=== PATIENT | female | born 1995 | race Caucasian/White ===

== ENCOUNTER 2016-08-17 14:09 | Emergency (ER) | payer OTHER ==
[2016-08-17] MEDS ORDERED: TYLENOL 325 MG PO STA (14:43)
--- NOTE | 2016-08-17 14:45 | ERPHSYRPT ---
- History of Present Illness Time Seen by Provider: 08/17/16 14:35 Source: patient Exam Limitations: clinical condition Patient Subjective Stated Complaint: pt walked in, skin w/d, resp easy, no injury to back, Triage Nursing Assessment: see above for triage Physician History: PATIENT COMPLAINS OF FREQUENCY, URGENCY AND SLIGHT DYSURIA FOR 2-3 DAYS. DENIES FEVER, CHILLS, ABDOMINAL PAIN OR FLANK PAIN. Timing/Duration: day(s) Activites at Onset: none Quality: burning Onset Location: suprapubic Severity of Pain-Max: none Severity of Pain-Current: none Prior abdominal problems: none Sexual intercourse history: non-contributory Modifying Factors: Improves With: nothing Associated Symptoms: urinary frequency Allergies/Adverse Reactions: No Known Drug Allergies Allergy (Verified 08/17/16 14:26) Hx Tetanus, Diphtheria Vaccination/Date Given: No Hx Influenza Vaccination/Date Given: No Hx Pneumococcal Vaccination/Date Given: No - Review of Systems Constitutional: No Fever, No Chills Eyes: No Symptoms Ears, Nose, & Throat: No Symptoms Respiratory: No Cough, No Dyspnea Cardiac: No Chest Pain, No Edema, No Syncope Abdominal/Gastrointestinal: No Abdominal Pain, No Nausea, No Vomiting, No Diarrhea Genitourinary Symptoms: Dysuria, Frequency, Hesitancy Musculoskeletal: No Back Pain, No Neck Pain Skin: No Rash Neurological: No Dizziness, No Focal Weakness, No Sensory Changes Psychological: No Symptoms Endocrine: No Symptoms All Other Systems: Reviewed and Negative - Past Medical History Pertinent Past Medical History: No Neurological History: No Pertinent History ENT History: No Pertinent History Cardiac History: No Pertinent History Respiratory History: No Pertinent History Endocrine Medical History: No Pertinent History Musculoskeletal History: No Pertinent History GI Medical History: No Pertinent History History: No Pertinent History Psycho-Social History: No Pertinent History Female Reproductive Disorders: No Pertinent History Other Medical History: Occasional ear infection and UTI.pt had normal vaginal delivery 07/06/16 - Past Surgical History Past Surgical History: No Neuro Surgical History: No Pertinent History Cardiac: No Pertinent History Respiratory: No Pertinent History Gastrointestinal: No Pertinent History Genitourinary: No Pertinent History Musculoskeletal: No Pertinent History Female Surgical History: No Pertinent History - Social History Smoking Status: Current some day smoker Exposure to second hand smoke: Yes Drug Use: marijuana Patient Lives Alone: No - Female History Hx Last Menstrual Period: oct 2015 Hx Now: Yes - Nursing Vital Signs Nursing Vital Signs: Initial Vital Signs Temperature 97.8 F Temperature Source Oral Pulse Rate 79 Respiratory Rate 16 Blood Pressure [Right Arm] 130/78 Pain Intensity 7 - Physical Exam General Appearance: no apparent distress, alert Eye Exam: PERRL/EOMI, eyes nml inspection Ears, Nose, Throat Exam: normal ENT inspection, TMs normal, pharynx normal, moist mucous membranes Neck Exam: normal inspection, non-tender, supple, full range of motion Respiratory Exam: normal breath sounds, lungs clear, No respiratory distress Cardiovascular Exam: regular rate/rhythm, normal heart sounds, normal peripheral pulses Gastrointestinal/Abdomen Exam: soft, normal bowel sounds, No tenderness, No mass Back Exam: normal inspection, normal range of motion, No CVA tenderness, No vertebral tenderness Extremity Exam: normal inspection, normal range of motion, pelvis stable Neurologic Exam: alert, oriented x 3, cooperative, solar/renewable energy sales II-XII nml as tested, normal mood/affect, sensation nml, No motor deficits Skin Exam: normal color, warm, dry Lymphatic Exam: No adenopathy SpO2 Interpretation: normal SpO2: 93 Oxygen Delivery: Room Air Ordered Tests: Active Orders 24 hr Category Date Time Status IV Insertion STAT Care 08/17/16 15:29 Active CULTURE,URINE Stat Lab 08/17/16 15:00 Received HCG,QUALITATIVE URINE Stat Lab 08/17/16 15:00 Completed UA W/ MICROSCOPIC Stat Lab 08/17/16 15:00 Completed Medication Summary Discontinued Medications Generic Name Dose Route Start Last Admin Trade Name Janny PRN Reason Stop Dose Admin Acetaminophen 650 mg 08/17/16 14:43 08/17/16 15:15 Tylenol 325 Mg PO 08/17/16 14:44 650 mg STAT STA Administration Acetaminophen Confirm 08/17/16 15:15 Tylenol 325 Mg Administered 08/17/16 15:16 Dose 650 mg .ROUTE .STK-MED ONE Ceftriaxone Sodium/Dextrose 1 g in 50 mls @ 100 mls/hr 08/17/16 15:30 15:53 Rocephin 1 Gm-D5w 50 Ml Bag IV 08/17/16 15:59 100 mls/hr STAT STA Administration Sodium Chloride 1,000 mls @ 999 mls/hr 08/17/16 15:29 08/17/16 15:53 Sodium Chloride 0.9% 1000 Ml IV 08/17/16 16:29 999 mls/hr .Q1H1M STA Administration Sodium Chloride Confirm 08/17/16 15:51 Sodium Chloride 0.9% 1000 Ml Administered 08/17/16 15:52 Dose 1,000 mls @ ud .ROUTE .STK-MED ONE Ceftriaxone Sodium/Dextrose Confirm 08/17/16 15:51 Rocephin 1 Gm-D5w 50 Ml Bag Administered 08/17/16 15:52 Dose 1 g in 50 mls @ ud IV .STK-MED ONE Lab/Rad Data: Laboratory Results 08/17/16 08/17/16 Range/Units 15:00 15:00 Ur Collection Type VOID Urine Color YELLOW (YELLOW) Urine Appearance CLOUDY (CLEAR) Urine pH 6.0 (5-6) Ur Specific [place] 1.010 (1.005-1.025) Urine Protein 2+ (Negative) Urine Ketones NEGATIVE (NEGATIVE) Urine Blood 250 (0-5) Nadir/ul Urine Nitrite POSITIVE (NEGATIVE) Urine Bilirubin NEGATIVE (NEGATIVE) Urine Urobilinogen NORMAL (0-1) mg/dL Ur Leukocyte Esterase 2+ (NEGATIVE) Urine Microscopic RBC 0-2 (0-2) /HPF Urine Microscopic WBC >100 (0-5) /HPF Ur Epithelial Cells RARE (FEW) /HPF Urine Bacteria MANY (NEGATIVE) /HPF Urine Glucose NEGATIVE (NEGATIVE) mg/dL Urine HCG, Qual NEGATIVE (Negative) Specimen Received 08/17/16 1510 - Progress Progress Note: 08/17/16 16:36 PATIENT GIVEN BOLUS NORMAL SALINE OVER 1 HOUR, ROCEPHIN 1GM IVPB, TYLENOL 650MG ORAL Counseled pt/family regarding: lab results, diagnosis, need for follow-up - Departure Time of Disposition: 17:05 Departure Disposition: Home Clinical Impression: URINARY TRACT INFECTION Condition: Stable Critical Care Time: No Referrals: NENITA DELATORRE [Primary Care Provider] - Additional Instructions: ANTIBIOTIC BACTRIM DS TWICE DAILY FOR 10 DAYS. PYRIDIUM 100MG AFTER MEALS FOR 2 DAYS. DRINK PLENTY OF FLUIDS. TYLENOL OR MOTRIN NEEDED FOR PAIN OR FEVER. CONSULT YOUR PRIMARY HEALTH CARE PROVIDER FOR FOLLOWUP. Prescriptions: Phenazopyridine HCl [Pyridium] 100 mg PO BETWEEN UNITS #6 tablet Smz/Tmp Ds Tablet [Bactrim Ds Tablet] 1 udtab PO BID #20 tablet
[2016-08-17] MEDS ORDERED: TYLENOL 325 MG ONE (15:15)
[2016-08-17 15:17] LABS: ADD URINE CULTURE? YES (NO); Bilirubin NEGATIVE (NEGATIVE); Blood 250 Ery/ul (0-5); COMPLETE URINE MICROSCOPIC? YES; Collection Type VOID; Glucose NEGATIVE (NEGATIVE); Leukocyte Esterase 2+ (NEGATIVE)
[2016-08-17 15:23] LABS: Bacteria MANY /HPF (NEGATIVE); Epithelial Cells RARE /HPF (FEW); WBC >100 /HPF (0-5)
[2016-08-17] MEDS ORDERED: Sodium Chloride 0.9% 1000 ML 1,000 ML IV STA (15:29)
[2016-08-17] MEDS ORDERED: ROCEPHIN 1 Gm-D5w 50 ml Bag** 1 G/50 ML IVPB IV STA (15:30)
[2016-08-17] MEDS ORDERED: ROCEPHIN 1 Gm-D5w 50 ml Bag** 1 G/50 ML IVPB IV ONE (15:51)
[2016-08-17] MEDS ORDERED: Sodium Chloride 0.9% 1000 ML 1,000 ML ONE (15:51)
[2016-08-17] MEDS ORDERED: TORAdol 30 mg Injection IV ONE (16:52)
[2016-08-17] MEDS ORDERED: TORAdol 30 mg Injection ONE (16:55)
[2016-08-17 17:03] VITALS: BP 127/80; PULSE 75; O2SAT 99
== END 2016-08-17 17:12 | disposition home or self-care (01) ==
LOC: ED 14:09
DX: N39.0 Urinary tract infection, site not specified (principal); R30.0 Dysuria; R35.0 Frequency of micturition
CPT/HCPCS: 36000; 81000; 84703; 87077; 87086; 87186; 96360; 96365; 96374; 99284; J0696; J1885; A9270-GY

== ENCOUNTER 2017-01-03 14:40 | Observation (INO) | payer OTHER ==
[2017-01-03] MEDS ORDERED: Zosyn 3.375GM/100 Ml D5W 3.375 GM/100 ML IVPB IV STA (14:58)
[2017-01-03] MEDS ORDERED: TYLENOL 325 MG PO STA (14:58)
[2017-01-03] MEDS ORDERED: TYLENOL 325 MG ONE (15:05)
[2017-01-03] MEDS ORDERED: Zosyn 3.375GM/100 Ml D5W 3.375 GM/100 ML IVPB IV ONE (15:05)
--- NOTE | 2017-01-03 15:05 | ERPHSYRPT ---
- History of Present Illness Time Seen by Provider: 01/03/17 15:02 Historian: patient Exam Limitations: no limitations Patient Subjective Stated Complaint: 2 weeks has been haivng buring,and pain with urination, fever last night, nausea Triage Nursing Assessment: pt alert, resp easy, skin w/d pink, urine cloudy, abd soft, pain to lower abd and back ,bs x4 Physician History: mild to mod burning and cloudy urine for one week, bilateral flank ache, no injury, +fever, no emesis, speech fluent, ambulatory Allergies/Adverse Reactions: No Known Drug Allergies Allergy (Verified 01/03/17 14:45) Home Medications: No Reportable Medications [No Reported Medications] 01/03/17 [History] Hx Tetanus, Diphtheria Vaccination/Date Given: Yes Hx Influenza Vaccination/Date Given: Yes Hx Pneumococcal Vaccination/Date Given: No Immunizations Up to Date: Yes - Review of Systems Constitutional: Fever, Fatigue Eyes: No Symptoms Ears, Nose, & Throat: No Symptoms Respiratory: No Symptoms Cardiac: No Symptoms Abdominal/Gastrointestinal: Abdominal Pain, Nausea, No Vomiting Genitourinary Symptoms: Dysuria, Flank Pain Musculoskeletal: No Injury Skin: No Symptoms Neurological: No Dizziness, No Focal Weakness, No Headache, No Lethargy Psychological: No Symptoms - Past Medical History Pertinent Past Medical History: No Neurological History: No Pertinent History ENT History: No Pertinent History Cardiac History: No Pertinent History Respiratory History: No Pertinent History Endocrine Medical History: No Pertinent History Musculoskeletal History: No Pertinent History GI Medical History: No Pertinent History History: No Pertinent History Psycho-Social History: No Pertinent History Female Reproductive Disorders: No Pertinent History Other Medical History: Occasional ear infection and UTI.pt had normal vaginal delivery 07/06/16 - Past Surgical History Past Surgical History: No Neuro Surgical History: No Pertinent History Cardiac: No Pertinent History Respiratory: No Pertinent History Gastrointestinal: No Pertinent History Genitourinary: No Pertinent History Musculoskeletal: No Pertinent History Female Surgical History: No Pertinent History - Social History Smoking Status: Current every day smoker Exposure to second hand smoke: Yes Drug Use: marijuana Patient Lives Alone: No - Female History Hx Last Menstrual Period: now Hx Now: No - Nursing Vital Signs Nursing Vital Signs: Initial Vital Signs Temperature 102.8 F 01/03/17 14:48 Pulse Rate 128 H 01/03/17 14:48 Respiratory Rate 22 01/03/17 14:48 Blood Pressure 131/74 01/03/17 14:48 O2 Sat by Pulse Oximetry 98 01/03/17 14:48 Pain Scale Pain Intensity 6 - Physical Exam General Appearance: no apparent distress Eye Exam: PERRL/EOMI Ears, Nose, Throat Exam: moist mucous membranes Neck Exam: normal inspection Respiratory Exam: normal breath sounds Cardiovascular Exam: tachycardia Gastrointestinal/Abdomen Exam: soft, tenderness, No distention, No rebound Back Exam: CVA tenderness Extremity Exam: normal inspection Neurologic Exam: alert, oriented x 3, cooperative Skin Exam: warm, dry SpO2 Interpretation: normal SpO2: 98 Oxygen Delivery: Room Air - Course Nursing assessment & vital signs reviewed: Yes EKG Interpreted by Me: Other (st 125 no stemi) - Radiology Exams Chest X-ray Interpretation: Discussed w/ radiologist, No Pneumonia Ordered Tests: Active Orders 24 hr Category Date Time 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 STAT Care 01/03/17 14:59 Active EKG-ER Only STAT Care 01/03/17 14:58 Active IV Insertion STAT Care 01/03/17 14:58 Active Pulse Oximetry (ED) STAT Care 01/03/17 14:58 Active CHEST 1 VIEW (PORTABLE) Stat Exams 01/03/17 14:59 Completed BLOOD CULTURE Stat Lab 01/03/17 15:10 Received CBC W DIFF Stat Lab 01/03/17 15:00 Completed CMP Stat Lab 01/03/17 15:00 Completed CULTURE, THROAT Stat Lab 01/03/17 15:00 Received CULTURE,URINE Stat Lab 01/03/17 15:00 Received HCG,QUALITATIVE URINE Stat Lab 01/03/17 15:00 Completed Lactic Acid Stat Lab 01/03/17 15:13 Completed PROTIME WITH INR Stat Lab 01/03/17 15:00 Completed STREP SCREEN-BETA A Stat Lab 01/03/17 15:00 Completed UA W/ MICROSCOPIC Stat Lab 01/03/17 15:00 Completed Transfer Order Routine Transfer 01/03/17 Ordered Medication Summary Generic Name Dose Route Start Last Admin Trade Name Freq PRN Reason Stop Dose Admin Sodium Chloride 1,000 mls @ 999 mls/hr 01/03/17 15:00 01/03/17 16:08 Sodium Chloride 0.9% 1000 Ml IV 01/03/17 18:00 999 mls/hr .Q1H1M LUZMARIA Administration Discontinued Medications Generic Name Dose Route Start Last Admin Trade Name Freq PRN Reason Stop Dose Admin Acetaminophen 975 mg 01/03/17 14:58 01/03/17 15:08 Tylenol 325 Mg PO 01/03/17 14:59 975 mg STAT STA Administration Acetaminophen Confirm 01/03/17 15:05 Tylenol 325 Mg Administered 01/03/17 15:06 Dose 975 mg .ROUTE .STK-MED ONE Piperacillin Sod/Tazobactam Sod 3.375 gm in 100 mls @ 200 mls/hr 01/03/17 14: 58 01/03/17 15:09 Zosyn 3.375gm/100 Ml D5w IV 01/03/17 15:27 200 mls/hr STAT STA Administration Piperacillin Sod/Tazobactam Sod Confirm 01/03/17 15:05 Zosyn 3.375gm/100 Ml D5w Administered 01/03/17 15:06 Dose 3.375 gm in 100 mls @ ud IV .STK-MED ONE Lab/Rad Data: Laboratory Result Diagrams 01/03/17 15:00 01/03/17 15:00 Laboratory Results 01/03/17 01/03/17 01/03/17 Range/Units 15:13 15:00 15:00 WBC (4.0-10.5) K/mm3 RBC (4.1-5.4) M/mm3 Hgb (12.0-16.0) gm/dl Hct (35-47) % MCV (78-100) fl MCH (26-32) pg MCHC (32-36) g/dl RDW (11.5-14.0) % Plt Count (150-450) K/mm3 MPV (6-9.5) fl Gran % (36.0-66.0) % Lymphocytes % (24.0-44.0) % Monocytes % (0.0-12.0) % Eosinophils % (0.00-5.0) % Basophils % (0.0-0.4) % Basophils # (0-0.4) INR (0.8-3.0) Sodium (136-145) mEq/L Potassium (3.5-5.1) mEq/L Chloride (98-107) mEq/L Carbon Dioxide (21-32) mEq/L Anion Gap (5-15) MEQ/L BUN (9-20) mg/dL Creatinine (0.55-1.30) mg/dl Estimated GFR ML/MIN Glucose (70-110) MG/DL Lactic Acid 0.9 (0.4-2.0) Calcium (8.5-10.1) mg/dL Total Bilirubin (0.2-1.0) mg/dL AST (15-37) U/L ALT (12-78) U/L Alkaline Phosphatase (46-116) U/L Serum Total Protein (6.4-8.2) gm/dL Albumin (3.4-5.0) g/dL Ur Collection Type CCMS Urine Color YELLOW (YELLOW) Urine Appearance CLOUDY (CLEAR) Urine pH 8.0 (5-6) Ur Specific [place] 1.005 (1.005-1.025) Urine Protein TRACE (Negative) Urine Ketones MODERATE (NEGATIVE) Urine Blood 250 (0-5) Nadir/ul Urine Nitrite NEGATIVE (NEGATIVE) Urine Bilirubin NEGATIVE (NEGATIVE) Urine Urobilinogen NORMAL (0-1) mg/dL Ur Leukocyte Esterase 2+ (NEGATIVE) Urine Microscopic RBC >100 (0-2) /HPF Urine Microscopic WBC >100 (0-5) /HPF Ur Epithelial Cells RARE (FEW) /HPF Urine Bacteria FEW (NEGATIVE) /HPF Urine Glucose NEGATIVE (NEGATIVE) mg/dL Urine HCG, Qual NEGATIVE (Negative) Streptococcus Screen (Negative) Specimen Received 01-03-17 1515 01/03/17 01/03/17 01/03/17 Range/Units 15:00 15:00 15:00 WBC (4.0-10.5) K/mm3 RBC (4.1-5.4) M/mm3 Hgb (12.0-16.0) gm/dl Hct (35-47) % MCV (78-100) fl MCH (26-32) pg MCHC (32-36) g/dl RDW (11.5-14.0) % Plt Count (150-450) K/mm3 MPV (6-9.5) fl Gran % (36.0-66.0) % Lymphocytes % (24.0-44.0) % Monocytes % (0.0-12.0) % Eosinophils % (0.00-5.0) % Basophils % (0.0-0.4) % Basophils # (0-0.4) INR 1.27 (0.8-3.0) Sodium 133 L (136-145) mEq/L Potassium 3.8 (3.5-5.1) mEq/L Chloride 95 L (98-107) mEq/L Carbon Dioxide 23.7 (21-32) mEq/L Anion Gap 17.6 H (5-15) MEQ/L BUN 10 (9-20) mg/dL Creatinine 1.03 (0.55-1.30) mg/dl Estimated GFR > 60 ML/MIN Glucose 118 H (70-110) MG/DL Lactic Acid (0.4-2.0) Calcium 9.5 (8.5-10.1) mg/dL Total Bilirubin 0.60 (0.2-1.0) mg/dL AST 9 L (15-37) U/L ALT 12 (12-78) U/L Alkaline Phosphatase 53 (46-116) U/L Serum Total Protein 8.5 H (6.4-8.2) gm/dL Albumin 3.6 (3.4-5.0) g/dL Ur Collection Type Urine Color (YELLOW) Urine Appearance (CLEAR) Urine pH (5-6) Ur Specific [place] (1.005-1.025) Urine Protein (Negative) Urine Ketones (NEGATIVE) Urine Blood (0-5) Nadir/ul Urine Nitrite (NEGATIVE) Urine Bilirubin (NEGATIVE) Urine Urobilinogen (0-1) mg/dL Ur Leukocyte Esterase (NEGATIVE) Urine Microscopic RBC (0-2) /HPF Urine Microscopic WBC (0-5) /HPF Ur Epithelial Cells (FEW) /HPF Urine Bacteria (NEGATIVE) /HPF Urine Glucose (NEGATIVE) mg/dL Urine HCG, Qual (Negative) Streptococcus Screen NEGATIVE (Negative) Specimen Received 01/03/17 Range/Units 15:00 WBC 13.4 H (4.0-10.5) K/mm3 RBC 4.67 (4.1-5.4) M/mm3 Hgb 12.6 (12.0-16.0) gm/dl Hct 39.5 (35-47) % MCV 84.6 (78-100) fl MCH 27.0 (26-32) pg MCHC 31.9 L (32-36) g/dl RDW 13.1 (11.5-14.0) % Plt Count 253 (150-450) K/mm3 MPV 9.8 H (6-9.5) fl Gran % 83.9 H (36.0-66.0) % Lymphocytes % 7.7 L (24.0-44.0) % Monocytes % 8.3 (0.0-12.0) % Eosinophils % 0.0 (0.00-5.0) % Basophils % 0.1 (0.0-0.4) % Basophils # 0.01 (0-0.4) INR (0.8-3.0) Sodium (136-145) mEq/L Potassium (3.5-5.1) mEq/L Chloride (98-107) mEq/L Carbon Dioxide (21-32) mEq/L Anion Gap (5-15) MEQ/L BUN (9-20) mg/dL Creatinine (0.55-1.30) mg/dl Estimated GFR ML/MIN Glucose (70-110) MG/DL Lactic Acid (0.4-2.0) Calcium (8.5-10.1) mg/dL Total Bilirubin (0.2-1.0) mg/dL AST (15-37) U/L ALT (12-78) U/L Alkaline Phosphatase (46-116) U/L Serum Total Protein (6.4-8.2) gm/dL Albumin (3.4-5.0) g/dL Ur Collection Type Urine Color (YELLOW) Urine Appearance (CLEAR) Urine pH (5-6) Ur Specific [place] (1.005-1.025) Urine Protein (Negative) Urine Ketones (NEGATIVE) Urine Blood (0-5) Nadir/ul Urine Nitrite (NEGATIVE) Urine Bilirubin (NEGATIVE) Urine Urobilinogen (0-1) mg/dL Ur Leukocyte Esterase (NEGATIVE) Urine Microscopic RBC (0-2) /HPF Urine Microscopic WBC (0-5) /HPF Ur Epithelial Cells (FEW) /HPF Urine Bacteria (NEGATIVE) /HPF Urine Glucose (NEGATIVE) mg/dL Urine HCG, Qual (Negative) Streptococcus Screen (Negative) Specimen Received - Progress Progress: unchanged Discussed with : Dylan Will see patient in: hospital (observation) Counseled pt/family regarding: lab results, diagnosis, rad results - Departure Time of Disposition: 16:03 Departure Disposition: Observation Clinical Impression: UTI (urinary tract infection) Qualifiers: Urinary tract infection type: acute cystitis Hematuria presence: with hematuria Qualified Code(s): N30.01 - Acute cystitis with hematuria Condition: Stable Critical Care Time: No Referrals: NENITA DELATORRE [Primary Care Provider] - Sepsis Event Note - Focused Exam Date & Time exam performed: Date and Time: 01/03/17 1611 Vital Signs (Last 12 Hours): Vital Signs Temp Pulse Resp BP Pulse Ox 01/03/17 16:13 98 01/03/17 15:52 103.1 F 118 H 22 115/64 96 01/03/17 15:35 124 H 28 H 124/72 01/03/17 15:30 130 H 20 124/72 98 01/03/17 15:03 98 01/03/17 14:48 102.8 F 128 H 22 131/74 98 Respiratory Exam: CTA bilaterally Cardiovascular exam: tachycardia Capillary refill: < 2 seconds Peripheral Pulse Location: Radial Pulse Strength: Strong Skin exam: pink
[2017-01-03] MEDS: Sodium Chloride 0.9% 1000 ML 1,000 ML IV SCH ×4 (15:09→18:21)
[2017-01-03 15:19] LABS: Bilirubin NEGATIVE (NEGATIVE); Blood 250 Ery/ul (0-5); COMPLETE URINE MICROSCOPIC? YES; Collection Type CCMS; Glucose NEGATIVE (NEGATIVE); Leukocyte Esterase 2+ (NEGATIVE)
[2017-01-03 15:24] LABS: Bacteria FEW /HPF (NEGATIVE); Epithelial Cells RARE /HPF (FEW); WBC >100 /HPF (0-5)
[2017-01-03 15:28] LABS: BASOPHIL % 0.1 % (0.0-0.4); Granulocytes % 83.9 % (36.0-66.0); Lymphocytes % 7.7 % (24.0-44.0); Mean Cell Volume 84.6 fl (78-100); Mean Platelet Volume 9.8 fl (6-9.5); Monocytes % 8.3 % (0.0-12.0); Platelet Count 253 K/mm3 (150-450); Red Blood Count 4.67 M/mm3 (4.1-5.4); Red Cell Distribution Width 13.1 % (11.5-14.0); White Blood Count 13.4 K/mm3 (4.0-10.5)
[2017-01-03 15:32] LABS: INR 1.27 (0.8-3.0); PROTIME 14.2 SECONDS (9.95-12.35)
[2017-01-03 15:39] LABS: ALBUMIN 3.6 g/dL (3.4-5.0); ALKALINE PHOSPHATASE 53 U/L (46-116); ANION GAP 17.6 MEQ/L (5-15); BLOOD UREA NITROGEN 10 mg/dL (9-20); CHLORIDE 95 mEq/L (98-107); Carbon Dioxide 23.7 mEq/L (21-32); Glucose 118 MG/DL (70-110); Potassium 3.8 mEq/L (3.5-5.1); SGOT/AST 9 U/L (15-37); SGPT/ALT 12 U/L (12-78); SODIUM 133 mEq/L (136-145); Total Protein 8.5 gm/dL (6.4-8.2)
--- NOTE | 2017-01-03 15:45 | XRAY ---
Indication: Possible sepsis. Comparison: None Portable chest underinflated and clear. Heart and mediastinal structures within normal limits. Bony thorax intact. Impression: Nonacute underinflated chest.
[2017-01-03] MEDS ORDERED: Sodium Chloride 0.9% 1000 ML 1,000 ML ONE (16:59)
[2017-01-03] MEDS: TYLENOL 325 MG PO PRN (19:09)
[2017-01-03] MEDS: Zosyn 3.375GM/100 Ml D5W 3.375 GM/100 ML IVPB IV SCH (20:44)
[2017-01-03] MEDS ORDERED: MOTRIN 600 MG PO PRN (20:49)
[2017-01-04] MEDS: Zosyn 3.375GM/100 Ml D5W 3.375 GM/100 ML IVPB IV SCH ×4 (02:48→21:21)
[2017-01-04] MEDS: Sodium Chloride 0.9% 1000 ML 1,000 ML IV SCH ×2 (02:48→13:29)
[2017-01-04] MEDS: TYLENOL 325 MG PO PRN ×2 (04:50→18:42)
[2017-01-04 05:39] LABS: Eosinophil % 0.2 % (0.00-5.0); Granulocytes % 79.3 % (36.0-66.0); Lymphocytes % 9.5 % (24.0-44.0); Mean Cell Volume 85.2 fl (78-100); Mean Platelet Volume 9.8 fl (6-9.5); Platelet Count 199 K/mm3 (150-450); Red Blood Count 3.85 M/mm3 (4.1-5.4); White Blood Count 10.5 K/mm3 (4.0-10.5)
[2017-01-04 06:21] LABS: ALBUMIN 2.5 g/dL (3.4-5.0); ALKALINE PHOSPHATASE 41 U/L (46-116); ANION GAP 14.7 MEQ/L (5-15); BLOOD UREA NITROGEN 8 mg/dL (9-20); CHLORIDE 105 mEq/L (98-107); Carbon Dioxide 21.3 mEq/L (21-32); Glucose 109 MG/DL (70-110); Potassium 3.7 mEq/L (3.5-5.1); SGOT/AST 10 U/L (15-37); SGPT/ALT 9 U/L (12-78); SODIUM 137 mEq/L (136-145); Total Protein 6.4 gm/dL (6.4-8.2)
[2017-01-04 06:22] LABS: Mean Corpuscular Hemoglobin 27.2 pg (26-32)
--- NOTE | 2017-01-04 08:31 | PCM.HP ---
History of Present Illness - Chief Complaint Chief Complaint: uti, sepsis History of Present Illness: is a 21 year old female pt of mine from [facility] who started having dysuria 2 weeks ago. It progressed to throbbing pain with urination and bilateral flank pain, R>L. She started having fever 2d ago and "I could hardly get out of bed." She came to the hospital yesterday, had Tmax in ER of 103, was started on zosyn for pyelonephritis. This morning she is feeling better, did tolerate some po this morning. Afebrile this morning but has been taking tylenol and ibuprofen. - Review of Systems Constitutional: Fever, Weakness Respiratory: Short Of Breath Abdominal/Gastrointestinal: Nausea Genitourinary Symptoms: Dysuria, Hematuria, Flank Pain, Vaginal Bleeding ( menses started 5d ago) Psychological: No Anxiety, No Depression, No Suicidal Ideations, No Homicidal Ideations All Other Systems: Reviewed and Negative Medications & Allergies Home Medications: Home Medication List No Reportable Medications [No Reported Medications] 01/03/17 [History Confirmed 01/03/17] Allergies/Adverse Reactions: Allergies Allergy/AdvReac Type Severity Reaction Status Date / Time No Known Drug Allergies Allergy Verified 01/03/17 14:45 - Past Medical History Past Medical History: No Neurological History: No Pertinent History ENT History: No Pertinent History Cardiac History: No Pertinent History Respiratory History: No Pertinent History Endocrine Medical History: No Pertinent History Musculoskelatal History: No Pertinent History GI Medical History: No Pertinent History History: No Pertinent History Pyscho-Social History: No Pertinent History Reproductive Disorders: No Pertinent History Comment: Occasional ear infection and UTI.pt had normal vaginal delivery 07/06/16 - Female History Hx Last Menstrual Period: Are you now?: No - Past Surgical History Past Surgical History: No Neuro Surgical History: No Pertinent History Cardiac History: No Pertinent History Respiratory Surgery: No Pertinent History GI Surgical History: No Pertinent History Genitourinary Surgical Hx: No Pertinent History Musculskeletal Surgical Hx: No Pertinent History Female Surgical History: No Pertinent History - Social History Smoking Status: Current some day smoker How long have you smoked: 3 Exposure to second hand smoke: Yes Alcohol: Occasionally Drug Use: marijuana - Physical Exam Vital Signs: Vital Signs - 24 hr Temp Pulse Resp BP Pulse Ox 01/04/17 07:29 99 F 98 H 20 101/58 98 01/04/17 04:00 100 F 97 H 16 100/64 97 01/03/17 23:14 100.4 F 107 H 16 105/57 100 01/03/17 20:10 100.9 F 111 H 23 108/55 99 01/03/17 17:05 98.5 F 99 H 18 110/60 94 L 01/03/17 16:50 98.5 F 99 H 18 110/60 94 L 01/03/17 16:38 98.5 F 99 H 18 110/60 94 L 01/03/17 16:34 101.6 F 01/03/17 16:21 112 H 18 107/64 98 01/03/17 16:18 98 01/03/17 15:52 103.1 F 118 H 22 115/64 96 01/03/17 15:35 124 H 28 H 124/72 01/03/17 15:30 130 H 20 124/72 98 01/03/17 15:03 98 01/03/17 14:48 102.8 F 128 H 22 131/74 98 General Appearance: mild distress, alert Neurologic Exam: oriented x 3, cooperative Eye Exam: eyes nml inspection Ears, Nose, Throat Exam: moist mucous membranes Neck Exam: normal inspection Respiratory Exam: normal breath sounds, lungs clear, No crackles/rales, No rhonchi, No wheezing Cardiovascular Exam: normal heart sounds, tachycardia (reg rhythm), No murmur Gastrointestinal/Abdomen Exam: soft, normal bowel sounds, tenderness (suprapubic ), No distention, No mass, No guarding, No rebound Back Exam: normal inspection, CVA tenderness (R>L), No rash Extremity Exam: normal inspection Skin Exam: normal color, warm, dry Results - Labs Lab/Micro Results: Lab Results-Last 24 Hours 01/04/17 01/04/17 Range/Units 05:10 05:10 WBC 10.5 (4.0-10.5) K/mm3 RBC 3.85 L (4.1-5.4) M/mm3 Hgb 10.5 L (12.0-16.0) gm/dl Hct 32.8 L (35-47) % MCV 85.2 (78-100) fl MCH 27.2 (26-32) pg MCHC 32.0 (32-36) g/dl RDW 13.0 (11.5-14.0) % Plt Count 199 (150-450) K/mm3 MPV 9.8 H (6-9.5) fl Gran % 79.3 H (36.0-66.0) % Lymphocytes % 9.5 L (24.0-44.0) % Monocytes % 11.0 (0.0-12.0) % Eosinophils % 0.2 (0.00-5.0) % Basophils % 0.0 (0.0-0.4) % Basophils # 0 (0-0.4) Sodium 137 (136-145) mEq/L Potassium 3.7 (3.5-5.1) mEq/L Chloride 105 (98-107) mEq/L Carbon Dioxide 21.3 (21-32) mEq/L Anion Gap 14.7 (5-15) MEQ/L BUN 8 L (9-20) mg/dL Creatinine 0.73 (0.55-1.30) mg/dl Estimated GFR > 60 ML/MIN Glucose 109 (70-110) MG/DL Calcium 8.1 L (8.5-10.1) mg/dL Total Bilirubin 0.40 (0.2-1.0) mg/dL AST 10 L (15-37) U/L ALT 9 L (12-78) U/L Alkaline Phosphatase 41 L (46-116) U/L Serum Total Protein 6.4 (6.4-8.2) gm/dL Albumin 2.5 L (3.4-5.0) g/dL Assessment/Plan (1) Pyelonephritis Current Visit: Yes Status: Acute Assessment & Plan: On IV zosyn. She is just somewhat ill appearing this morning. Would plan to keep her at least until tomorrow; would like her to be afebrile and would like to see culture results before sending her home. Recheck CBC in a.m. Code(s): N12 - TUBULO-INTERSTITIAL NEPHRITIS, NOT SPC[facility] ACUTE OR CHRONIC
[2017-01-04] MEDS: MOTRIN 600 MG PO PRN ×2 (09:34→22:34)
[2017-01-04] MEDS: Sodium Chloride 0.9% W/ 20 mEq KCl/LITER 1,000 ML IV SCH (14:44)
[2017-01-04] MEDS ORDERED: Sodium Chloride 0.9% 500 ML 500 ML IV ONE (16:09)
[2017-01-05] MEDS: Sodium Chloride 0.9% W/ 20 mEq KCl/LITER 1,000 ML IV SCH (00:40)
[2017-01-05] MEDS: Zosyn 3.375GM/100 Ml D5W 3.375 GM/100 ML IVPB IV SCH ×2 (03:31→08:35)
[2017-01-05 05:44] LABS: Eosinophil % 0.4 % (0.00-5.0); Granulocytes % 66.2 % (36.0-66.0); Lymphocytes % 21.9 % (24.0-44.0); Mean Cell Volume 86.1 fl (78-100); Monocytes % 11.5 % (0.0-12.0); Platelet Count 258 K/mm3 (150-450); Red Blood Count 3.88 M/mm3 (4.1-5.4); Red Cell Distribution Width 13.1 % (11.5-14.0); White Blood Count 7.9 K/mm3 (4.0-10.5)
[2017-01-05 06:10] LABS: ANION GAP 14.2 MEQ/L (5-15); BLOOD UREA NITROGEN 7 mg/dL (9-20); CHLORIDE 107 mEq/L (98-107); Carbon Dioxide 23.1 mEq/L (21-32); Glucose 99 MG/DL (70-110); Potassium 4.4 mEq/L (3.5-5.1); SODIUM 140 mEq/L (136-145)
[2017-01-05 07:27] VITALS: BP 103/55; PULSE 97; O2SAT 97
--- NOTE | 2017-01-05 08:27 | PCM.DS ---
Discharge Summary Date of Admission: 01/03/17 16:28 Admitting Physician: NENITA DELATORRE Primary Care Provider: NENITA DELATORRE Allergies Allergies No Known Drug Allergies Allergy (Verified 01/03/17 14:45) Hospital Summary - Hospital Course Hospital Course: Pt admitted through ER with pyelonephritis and abdominal pain with fever over 103. She was put on IV zosyn and has felt progressively better; today she is feeling much better than at admission. She did have a fever last night but it did not last as long as it did previously. She is currently afebrile and tolerating po well. Her urine culture results are back and grew E. coli, dumont- susceptible. Will send her home on po cipro BID x 5d. Strict instructions to call or return for increasing fever or pain or inability to tolerate po. - Vitals & Intake/Output Vital Signs: Vital Signs Temperature 98 F 01/05/17 07:26 Pulse Rate 97 H 01/05/17 07:26 Respiratory Rate 18 01/05/17 07:26 Blood Pressure 103/55 01/05/17 07:26 O2 Sat by Pulse Oximetry 97 01/05/17 07:26 Intake & Output: Intake & Output 01/02/17 01/03/17 01/04/17 01/05/17 11:59 11:59 11:59 11:59 Intake Total 3313 4453 Output Total 1000 1400 Balance 2313 3053 Weight 96.36 kg - Lab Result Diagrams: 01/05/17 04:00 01/05/17 04:00 Lab Results-Last 24 Hrs: Lab Results-Last 24 Hours 01/05/17 01/05/17 Range/Units 04:00 04:00 WBC 7.9 (4.0-10.5) K/mm3 RBC 3.88 L (4.1-5.4) M/mm3 Hgb 10.5 L (12.0-16.0) gm/dl Hct 33.4 L (35-47) % MCV 86.1 (78-100) fl MCH 27.0 (26-32) pg MCHC 31.4 L (32-36) g/dl RDW 13.1 (11.5-14.0) % Plt Count 258 (150-450) K/mm3 MPV 10.0 H (6-9.5) fl Gran % 66.2 H (36.0-66.0) % Lymphocytes % 21.9 L (24.0-44.0) % Monocytes % 11.5 (0.0-12.0) % Eosinophils % 0.4 (0.00-5.0) % Basophils % 0.0 (0.0-0.4) % Basophils # 0 (0-0.4) Sodium 140 (136-145) mEq/L Potassium 4.4 (3.5-5.1) mEq/L Chloride 107 (98-107) mEq/L Carbon Dioxide 23.1 (21-32) mEq/L Anion Gap 14.2 (5-15) MEQ/L BUN 7 L (9-20) mg/dL Creatinine 0.83 (0.55-1.30) mg/dl Estimated GFR > 60 ML/MIN Glucose 99 (70-110) MG/DL Calcium 8.4 L (8.5-10.1) mg/dL - Procedures and Test Procedures and Tests throughout Hospitalization: Therapy Orders & Screens 01/03/17 17:32 Smoking Cessation Education ONCE Comment: Diagnosis: uti, sepsis Smoking Status: Current some day smoker How long have you smoked: 3 Have you smoked in the past 12 months: Yes Approximately how many cigarettes per day: 2 Do you dip or chew tobacco: No If,Former Smoker,when did you quit: 2 years ago Discharge Exam General Appearance: no apparent distress, alert Neurologic Exam: oriented x 3, cooperative Skin Exam: normal color, warm, dry Respiratory Exam: normal breath sounds, lungs clear, No crackles/rales, No rhonchi, No wheezing Cardiovascular Exam: regular rate/rhythm, normal heart sounds, No murmur Gastrointestinal/Abdomen Exam: soft, normal bowel sounds, No tenderness, No distention, No guarding, No rebound Back Exam: No CVA tenderness Final Diagnosis/Problem List - Final Discharge Diagnosis/Problem (1) Pyelonephritis Current Visit: Yes Status: Acute Assessment & Plan: Much improved. Still had some fever last night but the culture is dumont susceptible E. coli so if she is compliant with her meds should be fine on po meds at home. She has instructions when to call, if any increased fever/pain or not feeling well/unable to tolerate po. f/u with me next week. - Discharge Disposition: Home, Self-Care Condition: Stable Prescriptions: New Ciprofloxacin [Cipro 500 MG] 500 mg PO BID #10 tablet Follow up with: NENITA DELATORRE [Primary Care Provider] - Forms: Patient Portal Information
== END 2017-01-05 09:55 | disposition home or self-care (01) ==
LOC: ED 14:40 → MED SURG 16:28
PROVIDERS: ADMIT Family Medicine; ATTEND Family Medicine
DX: N12 Tubulo-interstitial nephritis, not specified as acute or chronic (principal); Z72.0 Tobacco use; F12.90 Cannabis use, unspecified, uncomplicated
CPT/HCPCS: 36000; 36415; 71010; 80048; 80053; 81000; 83605; 84703; 85025; 85610; 87040; 87070; 87077; 87086; 87186; 87430; 93005; 93041; 93268; 96360; 96361; 96365; 99285; G0378; J2543; A9270-GY